=== PATIENT | female | born 1965 | race Caucasian/White ===

== ENCOUNTER 2025-05-18 04:32 | Observation (INO) ==
[2025-05-18 04:47] VITALS: BMI 50.9
[2025-05-18 05:02] LABS: MEAN PLATELET VOLUME 8.0 fL (7.4-11.0); RED CELL DISTRIBUTION WIDTH 16.5 % (11.6-16.5)
[2025-05-18 05:07] LABS: BLOOD/HEMOGLOBIN,URINE NEGATIVE (NEGATIVE); LEUKOCYTE ESTERASE ,URINE NEGATIVE (NEGATIVE); NITRITES,URINE NEGATIVE (NEGATIVE)
[2025-05-18 05:11] LABS: COR CA(FOR HYPOALB) 10.1 mg/dL (8.5-10.1); COR NA(FOR HYPERGLY) 137.0 mmol/L (136-145); CREATININE 1.2 mg/dL (0.55-1.02); eGFR NON BLACK RACES 48.0 (>60)
[2025-05-18 05:17] LABS: APPEARANCE,URINE CLEAR (CLEAR)
--- NOTE | 2025-05-18 05:37 | CT ---
PROCEDURE: CT Abdomen and Pelvis without IV Contrast. HISTORY: Right lower abdominal pain; PT C/O RLQ PAIN THAT STARTED LAST NIGHT. IF SHE APPLIES PRESSURE SHE FEELS BETTER . TECHNIQUE: Axial images were performed through the abdomen and pelvis without the administration of IV contrast with multiplanar reformations . Oral contrast was notadministered . Dose reduction techniques including Automated Exposure Control (AEC) and adjustment of mA and kV were utilized .. COMPARISON: 04/04/2025. TECHNICAL QUALITY: Satisfactory. FINDINGS: Clear lung bases. Liver, spleen, adrenals, pancreas show no abnormality. No urinary tract stones or obstructive uropathy. Previous cholecystectomy. No ascites or pneumoperitoneum. Trace atherosclerosis aorta. No lymphadenopathy. No bowel obstruction or inflammation. Appendix is not visualized. No findings suggesting appendicitis right lower quadrant. Pelvis shows previous hysterectomy and no masses or free fluid. Normal urinary bladder. No acute bony abnormality. IMPRESSION: 1. Appendix is not visualized. No other significant abnormality right lower quadrant. 2. No other significant abnormality visualized. THIS IS AN ELECTRONICALLY VERIFIED FINAL REPORT 05/18/2025 5:33 AM - Electronically signed by Justin Mora MD
--- NOTE | 2025-05-18 06:20 | ED.ABDFE ---
HPI Time Seen Time Seen by Provider: 05/18/25 06:18 PCP Primary Care Physician: Dr. Rosario Complaint Doctors Chief Complaint Comments: Patient complaining of right lower quadrant pain that started right after supper last night it hurts but is relieved when pressure is applied to the area. Chief Complaint:: Patient states around dinner time tonight, patient started having RLQ pain that was relieved when pressure was applied. States she went and laid down and laid on that side to apply pressure. Patient reports that when she rolled over off that side that the pain intensified after pressure was released. Patient is tearful during triage. COVID-19 Coronavirus risk:travel/contact w/high risk person: No Has patient experienced Coronavirus symptoms: No Source History Provided: Patient Mode of arrival Mode of Arrival: Ambulatory Timing Onset of Chief Complaint: 05/17/25 PMH PMH Past Medical History: Yes Past Medical History: Arthritis, Coronary Artery Disease, Diabetes, Dyslipidemia, GERD, Hypertension, Hypothyroidism, Kidney Stones and [place] Past Surgical History: Yes Surgical History: Cholecystectomy, Hysterectomy and Ortho Surgery Past Surgical History Comment: Bilateral shoulder Family History History of Family Medical Conditions: Yes Family Medical History: Diabetes Mellitus, Coronary Artery Disease and Hypertension Social History Does any household member use tobacco: No Alcohol Use: None Do you use any recreational Drugs:: No Lives Where: Home Travel Risk Coronavirus risk:travel/contact w/high risk person: No Has patient experienced Coronavirus symptoms: No Infectious screening Have you traveled outside the country in the last 6 months?: No Isolation: Standard ROS Review of Systems Constitutional: Other (rlq abdominal pain) Eyes: No Symptoms Reported ENTM: No Symptoms Reported Respiratoy: No Symptoms Reported Cardiovascular: No Symptoms Reported Gastrointestinal/Abdominal: Abdominal Pain Genitourinary: No Symptoms Reported Neurological: No Symptoms Reported Musculoskeletal: No Symptoms Reported Integumentary: No Symptoms Reported Hematologic/Lymphatic: No Symptoms Reported Endocrine: No Symptoms Reported Psychiatric: No Symptoms Reported All Other Systems: Reviewed and Negative PE Vital Signs Vitals: Vital Signs Temperature 97.7 F Pulse Rate 88 Pulse Rate 88 Pulse Rate 88 Pulse Rate 91 Pulse Rate 90 Respiratory Rate 18 Blood Pressure 123/57 Blood Pressure 122/60 Blood Pressure 115/72 O2 Sat by Pulse Oximetry 98 O2 Sat by Pulse Oximetry 98 O2 Sat by Pulse Oximetry 99 O2 Sat by Pulse Oximetry 100 O2 Sat by Pulse Oximetry 99 General Limitations: Physical Limitation (due to morbid obesity and rlq abdominal perry) General Appearance: In Distress (moderate distress) Head Head Exam: Normal Inspection, Atraumatic and Normocephalic Eyes Eye exam: PERRL ENT ENT Exam: Normal Exam and Normal Oropharynx Neck Neck Exam: Normal Inspection and Full ROM Chest Chest Inspection: Normal Inspection and Symmetric Chest Wall Rise Respiratory Respiratory Exam: Normal Lung Sounds Bilat Cardiovascular Cardiovascular Exam: Regular Rate and Normal Rhythm Abdominal Exam Abdominal Exam: Normal Inspection, Normal Bowel Sounds, Soft and Tenderness (rlq) Abdominal Tenderness: RLQ Rectal Rectal Exam: Deferred Back Back Exam: Normal Inspection Extremeties Extremities Exam: Normal Inspection Neurologic Neurological Exam: Alert, Oriented X3 and CN II-XII Intact Psychiatric Psychiatric Exam: Agitated Skin Skin Exam: Warm, Dry and Intact MDM Differential Diagnosis Differential Diagnosis- Considerations may include:: Appendicitis, Bowel Obstruction, Constipation, Urinary obstruction, Urinary tract infection and Urolithiasis COURSE Treatment Treatment: This patient made relatively stable during the ER visit. We did do a CT scan of the abdomen and pelvis and it did not show an appendix butdid not see any signs of acute appendicitis. Was no more intra-abdominal abnormalities. This patient CBC showed a WBC of only 10.6 the repeat metabolic panel showed a glucose of 128 BUN is 18 creatinine 1.20. Urine analysis that only showed plus for glucose but no leukocyte esterase. This patient was ordered Toradol 30 mg IV for pain but we are unable to get in the Pyxis to administer medications so we are awaiting time and that we have access to the medications in the Pyxis to give the patient some medication for the pain. [facility] Labs Reviewed 05/18/25 04:45 05/18/25 04:45 Laboratory: WBC 10.6 X10^3/uL (3.6-10.0) H 05/18/25 04:45 RBC 4.58 X10^6/uL (3.5-5.4) 05/18/25 04:45 Hgb 13.1 g/dL (12.0-16.0) 05/18/25 04:45 Hct 39.3 % (36.0-47.0) 05/18/25 04:45 MCV 85.8 fL (80.0-100.0) 05/18/25 04:45 MCH 28.7 pg (27.0-34.0) 05/18/25 04:45 MCHC 33.4 g/dL (33.0-35.0) 05/18/25 04:45 RDW 16.5 % (11.6-16.5) 05/18/25 04:45 Plt Count 330 X10^3/uL (150.0-450.0) 05/18/25 04:45 MPV 8.0 fL (7.4-11.0) 05/18/25 04:45 Neut % (Auto) 72.0 % (42.0-75.0) 05/18/25 04:45 Lymph % (Auto) 18.5 % (21.0-51.0) L 05/18/25 04:45 [place] % (Auto) 3.9 % (0.0-13.0) 05/18/25 04:45 Eos % (Auto) 3.1 % (0.9-2.9) H 05/18/25 04:45 Baso % (Auto) 2.5 % (0.2-1.0) H 05/18/25 04:45 Neut # (Auto) 7.6 x10^3/uL (2.2-4.8) H 05/18/25 04:45 Lymph # (Auto) 2.0 X10^3/uL (1.3-2.9) 05/18/25 04:45 [place] # (Auto) 0.4 x10^3/uL (0.3-0.8) 05/18/25 04:45 Eos # (Auto) 0.3 x10^3/uL (0.0-0.2) H 05/18/25 04:45 Baso # (Auto) 0.3 X10^3/uL (0.0-0.1) H 05/18/25 04:45 Absolute Nucleated RBC 0.1 /100WBC 05/18/25 04:45 Sodium 136 mmol/L (136-145) 05/18/25 04:45 Corrected Sodium 137 mmol/L (136-145) 05/18/25 04:45 Potassium 3.9 mmol/L (3.5-5.1) 05/18/25 04:45 Chloride 103 mmol/L (98-107) 05/18/25 04:45 Carbon Dioxide 23.1 mmol/L (21-32) 05/18/25 04:45 BUN 18 mg/dL (7-18) 05/18/25 04:45 Creatinine 1.20 mg/dL (0.55-1.02) H 05/18/25 04:45 Est GFR (MDRD) Af Amer 59 (>60) 05/18/25 04:45 Est GFR (MDRD) Non-Af 48 (>60) L 05/18/25 04:45 Glucose 128 mg/dL (65-99) H 05/18/25 04:45 Calcium 9.1 mg/dL (8.5-10.1) 05/18/25 04:45 Corrected Calcium 10.1 mg/dL (8.5-10.1) 05/18/25 04:45 Total Bilirubin 0.50 mg/dL (0.2-1.0) 05/18/25 04:45 AST 14 Units/L (15-37) L 05/18/25 04:45 ALT 22 Units/L (12-78) 05/18/25 04:45 Alkaline Phosphatase 207 Units/L (46-116) H 05/18/25 04:45 Total Protein 7.6 g/dL (6.4-8.2) 05/18/25 04:45 Albumin 2.8 g/dL (3.4-5.0) L 05/18/25 04:45 Globulin 4.8 g/dL (2.5-4.5) H 05/18/25 04:45 Albumin/Globulin Ratio 0.6 Ratio (1.1-2.1) L 05/18/25 04:45 Specimen Type Clean catch urine 05/18/25 04:55 Urine Color Pale yellow (YELLOW) 05/18/25 04:55 Urine Appearance Clear (CLEAR) 05/18/25 04:55 Urine pH 6.0 (5.0 - 8.0) 05/18/25 04:55 Ur Specific [place] 1.020 (1.000-1.030) 05/18/25 04:55 Urine Protein Negative (NEGATIVE) 05/18/25 04:55 Urine Glucose (UA) 4+ (NEGATIVE) 05/18/25 04:55 Urine Ketones Negative (NEGATIVE) 05/18/25 04:55 Urine Blood Negative (NEGATIVE) 05/18/25 04:55 Urine Nitrite Negative (NEGATIVE) 05/18/25 04:55 Urine Bilirubin Negative (NEGATIVE) 05/18/25 04:55 Urine Urobilinogen Normal (NORMAL) 05/18/25 04:55 Ur Leukocyte Esterase Negative (NEGATIVE) 05/18/25 04:55 Opioid Opioid Risk Tool Age (Keith box if 16-45): No History of Preadolescent Sexual Abuse: No Total: 0 Total Score Risk Category: Low Risk Copyright: [facility] predicting aberrant behaviors Discharge Plan Discharge Plan Patient Disposition: HOME, SELF-CARE Condition: Stable Prescriptions: No Action tirzepatide 10 mg/0.5 mL pen injector 10 mg subcut QWEEK 90 Days Qty: 6.5 1RF Rx Instructions: Take 10 mg once a week Voquezna 20 mg tablet 20 mg PO QDAY 30 Days Qty: 30 1RF gabapentin 300 mg capsule 300 mg PO TID Qty: 90 2RF omeprazole 40 mg capsule,delayed release(DR/EC) 40 mg PO BID Qty: 60 2RF levothyroxine 50 mcg tablet 50 mcg PO QDAY Qty: 90 0RF Humulin 70/30 U-100 KwikPen 100 unit/mL (70-30) insulin pen See Rx Instructions .ROUTE .COMPLEX Qty: 15 3RF Dose Instruction: INJECT 60 UNITS SUBCUTANEOUSLY IN THE MORNING AND 38 UNITS AT BEDTIME Rx Instructions: INJECT 60 UNITS SUBCUTANEOUSLY IN THE MORNING AND 38 UNITS AT BEDTIME ezetimibe 10 mg tablet 10 mg PO QDAY Qty: 90 0RF aspirin 81 mg tablet,delayed release (DR/EC) 81 mg PO QDAY lisinopril 10 mg tablet 10 mg PO QDAY metoprolol tartrate 25 mg tablet 25 mg PO BID Patient Comments: CARDIO Brilinta 90 mg tablet 90 mg PO BID Patient Comments: CARDIO atorvastatin 80 mg tablet 80 mg PO QDAY Patient Comments: CARDIO eplerenone 25 mg tablet 25 mg PO QDAY Patient Comments: CARDIO dapagliflozin propanediol [Farxiga] 10 mg tablet 10 mg PO QAM Patient Comments: CARDIO albuterol sulfate 90 mcg/actuation HFA aerosol inhaler 2 puff inhalation Q6H PRN (Reason: shortness of breath or wheezing) Qty: 6.7 1RF ezetimibe 10 mg tablet 10 mg PO QDAY amoxicillin-pot clavulanate 500-125 mg tablet 1 tab PO BID 7 Days Qty: 14 0RF furosemide [Lasix] 20 mg tablet 20 mg PO QAM PRN (Reason: leg swelling) Qty: 30 0RF phenazopyridine [Pyridium] 100 mg tablet 100 mg PO TID PRNQty: 6 0RF Health Concerns: Post Hospitalization: new medications and changes needed to prevent readmission or further decline. Pt educated and given instructions on all concerns. Plan of Treatment: Continue with present treatment and follow up plan. Pt is to keep follow up appointment as instructed and take medications as ordered. Follow ups/Referrals Follow ups/Referrals: Patience Rosario MD [Primary Care Provider, Unknown] - 3 days Instructions Stand Alone Forms: Find Help Web Site, Post Hospital Follow Up Care Print Language: SWEDISH
[2025-05-18] MEDS: TORADOL 30 MG VIAL IVP ONE (07:12)
[2025-05-18] MEDS: MORPHINE SULFATE INJ 2 MG INJ IVP ONE (07:49)
[2025-05-18] MEDS: ZOFRAN INJ 4 MG VIAL IVP ONE (07:49)
[2025-05-18] MEDS: NS 1,000 ML IV 1,000 ML IV ONE (08:27)
[2025-05-18] MEDS: ROCEPHIN VIAL 1 GRAM IV ONE (08:44)
--- NOTE | 2025-05-18 08:45 | ED.ABDFE ---
HPI Time Seen Time Seen by Provider: 05/18/25 06:18 PCP Primary Care Physician: Dr. Rosario Complaint Chief Complaint:: Patient states around dinner time tonight, patient started having RLQ pain that was relieved when pressure was applied. States she went and laid down and laid on that side to apply pressure. Patient reports that when she rolled over off that side that the pain intensified after pressure was released. Patient is tearful during triage. COVID-19 Coronavirus risk:travel/contact w/high risk person: No Has patient experienced Coronavirus symptoms: No Source History Provided: Patient Mode of arrival Mode of Arrival: Ambulatory Timing Onset of Chief Complaint: 05/17/25 PMH PMH Past Medical History: Yes Past Medical History: Arthritis, Coronary Artery Disease, Diabetes, Dyslipidemia, GERD, Hypertension, Hypothyroidism, Kidney Stones and [place] Past Surgical History: Yes Surgical History: Cholecystectomy, Hysterectomy and Ortho Surgery Past Surgical History Comment: Bilateral shoulder Family History History of Family Medical Conditions: Yes Family Medical History: Diabetes Mellitus, Coronary Artery Disease and Hypertension Social History Does any household member use tobacco: No Alcohol Use: None Do you use any recreational Drugs:: No Lives Where: Home Travel Risk Coronavirus risk:travel/contact w/high risk person: No Has patient experienced Coronavirus symptoms: No Infectious screening Have you traveled outside the country in the last 6 months?: No Isolation: Standard PE Vital Signs Vitals: Vital Signs Temperature 97.7 F Pulse Rate 87 Pulse Rate 86 Pulse Rate 88 Pulse Rate 88 Pulse Rate 88 Pulse Rate 87 Pulse Rate 88 Pulse Rate 88 Pulse Rate 88 Pulse Rate 91 Pulse Rate 90 Respiratory Rate 20 Respiratory Rate 20 Respiratory Rate 20 Respiratory Rate 20 Respiratory Rate 18 Blood Pressure 124/69 Blood Pressure 129/62 Blood Pressure 126/61 Blood Pressure 123/57 Blood Pressure 122/60 Blood Pressure 115/72 O2 Sat by Pulse Oximetry 98 O2 Sat by Pulse Oximetry 99 O2 Sat by Pulse Oximetry 97 O2 Sat by Pulse Oximetry 97 O2 Sat by Pulse Oximetry 97 O2 Sat by Pulse Oximetry 97 O2 Sat by Pulse Oximetry 98 O2 Sat by Pulse Oximetry 98 O2 Sat by Pulse Oximetry 99 O2 Sat by Pulse Oximetry 100 O2 Sat by Pulse Oximetry 99 [facility] Labs Reviewed 05/18/25 04:45 05/18/25 04:45 Laboratory: WBC 10.6 X10^3/uL (3.6-10.0) H 05/18/25 04:45 RBC 4.58 X10^6/uL (3.5-5.4) 05/18/25 04:45 Hgb 13.1 g/dL (12.0-16.0) 05/18/25 04:45 Hct 39.3 % (36.0-47.0) 05/18/25 04:45 MCV 85.8 fL (80.0-100.0) 05/18/25 04:45 MCH 28.7 pg (27.0-34.0) 05/18/25 04:45 MCHC 33.4 g/dL (33.0-35.0) 05/18/25 04:45 RDW 16.5 % (11.6-16.5) 05/18/25 04:45 Plt Count 330 X10^3/uL (150.0-450.0) 05/18/25 04:45 MPV 8.0 fL (7.4-11.0) 05/18/25 04:45 Neut % (Auto) 72.0 % (42.0-75.0) 05/18/25 04:45 Lymph % (Auto) 18.5 % (21.0-51.0) L 05/18/25 04:45 [place] % (Auto) 3.9 % (0.0-13.0) 05/18/25 04:45 Eos % (Auto) 3.1 % (0.9-2.9) H 05/18/25 04:45 Baso % (Auto) 2.5 % (0.2-1.0) H 05/18/25 04:45 Neut # (Auto) 7.6 x10^3/uL (2.2-4.8) H 05/18/25 04:45 Lymph # (Auto) 2.0 X10^3/uL (1.3-2.9) 05/18/25 04:45 [place] # (Auto) 0.4 x10^3/uL (0.3-0.8) 05/18/25 04:45 Eos # (Auto) 0.3 x10^3/uL (0.0-0.2) H 05/18/25 04:45 Baso # (Auto) 0.3 X10^3/uL (0.0-0.1) H 05/18/25 04:45 Absolute Nucleated RBC 0.1 /100WBC 05/18/25 04:45 Sodium 136 mmol/L (136-145) 05/18/25 04:45 Corrected Sodium 137 mmol/L (136-145) 05/18/25 04:45 Potassium 3.9 mmol/L (3.5-5.1) 05/18/25 04:45 Chloride 103 mmol/L (98-107) 05/18/25 04:45 Carbon Dioxide 23.1 mmol/L (21-32) 05/18/25 04:45 BUN 18 mg/dL (7-18) 05/18/25 04:45 Creatinine 1.20 mg/dL (0.55-1.02) H 05/18/25 04:45 Est GFR (MDRD) Af Amer 59 (>60) 05/18/25 04:45 Est GFR (MDRD) Non-Af 48 (>60) L 05/18/25 04:45 Glucose 128 mg/dL (65-99) H 05/18/25 04:45 Calcium 9.1 mg/dL (8.5-10.1) 05/18/25 04:45 Corrected Calcium 10.1 mg/dL (8.5-10.1) 05/18/25 04:45 Total Bilirubin 0.50 mg/dL (0.2-1.0) 05/18/25 04:45 AST 14 Units/L (15-37) L 05/18/25 04:45 ALT 22 Units/L (12-78) 05/18/25 04:45 Alkaline Phosphatase 207 Units/L (46-116) H 05/18/25 04:45 Total Protein 7.6 g/dL (6.4-8.2) 05/18/25 04:45 Albumin 2.8 g/dL (3.4-5.0) L 05/18/25 04:45 Globulin 4.8 g/dL (2.5-4.5) H 05/18/25 04:45 Albumin/Globulin Ratio 0.6 Ratio (1.1-2.1) L 05/18/25 04:45 Amylase 34 Units/L (25-115) 05/18/25 04:45 Lipase 47 Units/L (16-77) 05/18/25 04:45 Specimen Type Clean catch urine 05/18/25 04:55 Urine Color Pale yellow (YELLOW) 05/18/25 04:55 Urine Appearance Clear (CLEAR) 05/18/25 04:55 Urine pH 6.0 (5.0 - 8.0) 05/18/25 04:55 Ur Specific [place] 1.020 (1.000-1.030) 05/18/25 04:55 Urine Protein Negative (NEGATIVE) 05/18/25 04:55 Urine Glucose (UA) 4+ (NEGATIVE) 05/18/25 04:55 Urine Ketones Negative (NEGATIVE) 05/18/25 04:55 Urine Blood Negative (NEGATIVE) 05/18/25 04:55 Urine Nitrite Negative (NEGATIVE) 05/18/25 04:55 Urine Bilirubin Negative (NEGATIVE) 05/18/25 04:55 Urine Urobilinogen Normal (NORMAL) 05/18/25 04:55 Ur Leukocyte Esterase Negative (NEGATIVE) 05/18/25 04:55 Opioid Opioid Risk Tool Age (Keith box if 16-45): No History of Preadolescent Sexual Abuse: No Total: 0 Total Score Risk Category: Low Risk Copyright: [facility] predicting aberrant behaviors Discharge Plan Diagnosis Discharge Problem: Acute abdomen, DM type 2 (diabetes mellitus, type 2) Hypothyroidism Qualifiers: Hypothyroidism type: acquired Qualified Code(s): E03.9 - Hypothyroidism, unspecified Hypertension Qualifiers: Hypertension type: primary hypertension Qualified Code(s): I10 - Essential (primary) hypertension Discharge Plan Patient Disposition: 09 ADMITTED INPATIENT Condition: Stable Prescriptions: Discontinued Voquezna 20 mg tablet 20 mg PO QDAY 30 Days Qty: 30 1RF omeprazole 40 mg capsule,delayed release(DR/EC) 40 mg PO BID Qty: 60 2RF albuterol sulfate 90 mcg/actuation HFA aerosol inhaler 2 puff inhalation Q6H PRN (Reason: shortness of breath or wheezing) Qty: 6.7 1RF ezetimibe 10 mg tablet 10 mg PO QDAY amoxicillin-pot clavulanate 500-125 mg tablet 1 tab PO BID 7 Days Qty: 14 0RF furosemide [Lasix] 20 mg tablet 20 mg PO QAM PRN (Reason: leg swelling) Qty: 30 0RF phenazopyridine [Pyridium] 100 mg tablet 100 mg PO TID PRNQty: 6 0RF No Action tirzepatide 10 mg/0.5 mL pen injector 10 mg subcut QWEEK 90 Days Qty: 6.5 1RF Rx Instructions: Take 10 mg once a week gabapentin 300 mg capsule 300 mg PO TID Qty: 90 2RF levothyroxine 50 mcg tablet 50 mcg PO QDAY Qty: 90 0RF Humulin 70/30 U-100 KwikPen 100 unit/mL (70-30) insulin pen See Rx Instructions .ROUTE .COMPLEX Qty: 15 3RF Dose Instruction: INJECT 60 UNITS SUBCUTANEOUSLY IN THE MORNING AND 38 UNITS AT BEDTIME Rx Instructions: INJECT 60 UNITS SUBCUTANEOUSLY IN THE MORNING AND 38 UNITS AT BEDTIME ezetimibe 10 mg tablet 10 mg PO QDAY Qty: 90 0RF aspirin 81 mg tablet,delayed release (DR/EC) 81 mg PO QDAY lisinopril 10 mg tablet 10 mg PO QDAY metoprolol tartrate 25 mg tablet 25 mg PO BID Patient Comments: CARDIO Brilinta 90 mg tablet 90 mg PO BID Patient Comments: CARDIO atorvastatin 80 mg tablet 80 mg PO QDAY Patient Comments: CARDIO eplerenone 25 mg tablet 25 mg PO QDAY Patient Comments: CARDIO dapagliflozin propanediol [Farxiga] 10 mg tablet 10 mg PO QAM Patient Comments: CARDIO Health Concerns: Post Hospitalization: new medications and changes needed to prevent readmission or further decline. Pt educated and given instructions on all concerns. Plan of Treatment: Continue with present treatment and follow up plan. Pt is to keep follow up appointment as instructed and take medications as ordered. Orders to Discharge Patient Discharge Orders: Transfer (Routine); Ordered 05/18/25 Ordered By: Gama Parikh Follow ups/Referrals Follow ups/Referrals: Patience Rosario MD [Primary Care Provider, Unknown] - 3 days Instructions Stand Alone Forms: Find Help Web Site, Post Hospital Follow Up Care Print Language: [place] Provider Note Additional Notes pt was seen following from Dr. Dahl. She was noted to experience pain in the right lower abdomen. CBC showed wbc to be 10.6,ct abdomen /pelvis without contrast appendix not visualized but no acute inflammatory process noted .She did have worsening of pain with movement and over the mid-abdomen .her lipase and amylase was neg as patient also on mounjaro. She was discussed with Dr Rosario. Agreed to admit patient for observation .and monitor her abdominal pin ,start rocephin IV,fluids keep NPO and repeat ct abdomen/pelvis with contrast may be tomorrow
[2025-05-18] MEDS ORDERED: NovoLIN R (or HumuLIN R) SUBCUT PRN (10:21)
--- NOTE | 2025-05-18 11:26 | DR.H&P ---
H&P History & Physical for Day of: H&P Date: 05/18/25 Chief Complaint Chief Complaint: RLQ abdominal pain History of Present Illness History of Present Illness: Patient is a 60-year-old female with a past medical history of type 2 diabetes, CAD, hypertension, hyperlipidemia, hypothyroidism and arthritis presented with worsening right sided abdominal pain. She states the pain started yesterday and got worse last night. She denies any associated nausea, vomiting or diarrhea. The pain does not radiate anywhere it is localized to the right lower part of the abdomen. She states she had similar pain in March and presented to the ER, was treated for UTI. She states this time the pain is worse. ER workup included labs which showed WBC 10.6 hemoglobin 13.[address] abdomen pelvis without contrast was done which did not show any acute changes. Lipase and amylase were normal. UA was normal. She was started on IV fluids and antibiotics. Patient continues to have severe right sided abdominal pain, tender to palpation. Labs/imaging reviewed: - WBC 10.6 hemoglobin 13.1 creatinine 1.20 potassium 3.9 glucose 128 - CT abdomen pelvis without contrast reviewed Plan: Admit to [facility], continue to monitor. Repeat CTAP with contrast. Check lactic acid. Continue IV antibiotics. Continue gentle hydration. Replace electrolytes as per protocol. N.p.o. except meds for now. Continue pain control. Resume home medications as appropriate. Monitor a.m. labs and imaging. Time spent for clinical assessment, reviewing labs and imaging, physical exam, decision making and documentation greater than 45 minutes. Past Medical History Past Medical History: Arthritis, Coronary Artery Disease, Diabetes, Dyslipidemia, GERD, Hypertension, Hypothyroidism, Kidney Stones and [place] Past Surgical History Surgical History: Cholecystectomy, Hysterectomy and Ortho Surgery Family History Family Medical History: Diabetes Mellitus, Coronary Artery Disease and Hypertension Social History Does any household member use tobacco: No Alcohol Use: None Medications Home Medications: Home Medications Medication Instructions Recorded Confirmed Type aspirin 81 mg tablet,delayed 81 mg PO QDAY 05/30/23 History release atorvastatin 80 mg tablet 80 mg PO QDAY 05/18/2505/18 History dapagliflozin propanediol 10 mg 10 mg PO QDAY 05/18/25 05/18/25 History tablet (Farxiga) eplerenone 25 mg tablet 25 mg PO QDAY 05/18/2505/18 History ezetimibe 10 mg tablet 10 mg PO QDAY 05/18/2505/18 History furosemide 20 mg tablet 20 mg PO QAM PRN swelling 05/18/25 History gabapentin 300 mg capsule 300 mg PO TID 05/18/2505/18 History levothyroxine 50 mcg tablet 50 mcg PO QDAY 05/18/25 History lisinopril 10 mg tablet 10 mg PO QDAY 05/18/2505/18 History metoprolol tartrate 25 mg tablet 25 mg PO BID 05/18/25 05/18/25 History omeprazole 40 mg capsule,delayed 40 mg PO BID 05/18/25 05/18/25 History release ticagrelor 90 mg tablet (Brilinta) 90 mg PO BID 05/18/25 History tirzepatide 10 mg/0.5 mL 10 mg subcut QWEEK 05/18/25 05/18/25 History subcutaneous pen injector (Nicho) Allergies Allergies Allergy/AdvReac Type Severity Reaction Status Date / Time No Known Allergies Allergy Verified 05/18/25 04:48 Labs 05/18/25 04:45 05/18/25 04:45 Labs: Laboratory WBC 10.6 X10^3/uL (3.6-10.0) H 05/18/25 04:45 RBC 4.58 X10^6/uL (3.5-5.4) 05/18/25 04:45 Hgb 13.1 g/dL (12.0-16.0) 05/18/25 04:45 Hct 39.3 % (36.0-47.0) 05/18/25 04:45 MCV 85.8 fL (80.0-100.0) 05/18/25 04:45 MCH 28.7 pg (27.0-34.0) 05/18/25 04:45 MCHC 33.4 g/dL (33.0-35.0) 05/18/25 04:45 RDW 16.5 % (11.6-16.5) 05/18/25 04:45 Plt Count 330 X10^3/uL (150.0-450.0) 05/18/25 04:45 MPV 8.0 fL (7.4-11.0) 05/18/25 04:45 Neut % (Auto) 72.0 % (42.0-75.0) 05/18/25 04:45 Lymph % (Auto) 18.5 % (21.0-51.0) L 05/18/25 04:45 [place] % (Auto) 3.9 % (0.0-13.0) 05/18/25 04:45 Eos % (Auto) 3.1 % (0.9-2.9) H 05/18/25 04:45 Baso % (Auto) 2.5 % (0.2-1.0) H 05/18/25 04:45 Neut # (Auto) 7.6 x10^3/uL (2.2-4.8) H 05/18/25 04:45 Lymph # (Auto) 2.0 X10^3/uL (1.3-2.9) 05/18/25 04:45 [place] # (Auto) 0.4 x10^3/uL (0.3-0.8) 05/18/25 04:45 Eos # (Auto) 0.3 x10^3/uL (0.0-0.2) H 05/18/25 04:45 Baso # (Auto) 0.3 X10^3/uL (0.0-0.1) H 05/18/25 04:45 Absolute Nucleated RBC 0.1 /100WBC 05/18/25 04:45 Sodium 136 mmol/L (136-145) 05/18/25 04:45 Corrected Sodium 137 mmol/L (136-145) 05/18/25 04:45 Potassium 3.9 mmol/L (3.5-5.1) 05/18/25 04:45 Chloride 103 mmol/L (98-107) 05/18/25 04:45 Carbon Dioxide 23.1 mmol/L (21-32) 05/18/25 04:45 BUN 18 mg/dL (7-18) 05/18/25 04:45 Creatinine 1.20 mg/dL (0.55-1.02) H 05/18/25 04:45 Est GFR (MDRD) Af Amer 59 (>60) 05/18/25 04:45 Est GFR (MDRD) Non-Af 48 (>60) L 05/18/25 04:45 Glucose 128 mg/dL (65-99) H 05/18/25 04:45 Calcium 9.1 mg/dL (8.5-10.1) 05/18/25 04:45 Corrected Calcium 10.1 mg/dL (8.5-10.1) 05/18/25 04:45 Total Bilirubin 0.50 mg/dL (0.2-1.0) 05/18/25 04:45 AST 14 Units/L (15-37) L 05/18/25 04:45 ALT 22 Units/L (12-78) 05/18/25 04:45 Alkaline Phosphatase 207 Units/L (46-116) H 05/18/25 04:45 Total Protein 7.6 g/dL (6.4-8.2) 05/18/25 04:45 Albumin 2.8 g/dL (3.4-5.0) L 05/18/25 04:45 Globulin 4.8 g/dL (2.5-4.5) H 05/18/25 04:45 Albumin/Globulin Ratio 0.6 Ratio (1.1-2.1) L 05/18/25 04:45 Amylase 34 Units/L (25-115) 05/18/25 04:45 Lipase 47 Units/L (16-77) 05/18/25 04:45 Specimen Type Clean catch urine 05/18/25 04:55 Urine Color Pale yellow (YELLOW) 05/18/25 04:55 Urine Appearance Clear (CLEAR) 05/18/25 04:55 Urine pH 6.0 (5.0 - 8.0) 05/18/25 04:55 Ur Specific [place] 1.020 (1.000-1.030) 05/18/25 04:55 Urine Protein Negative (NEGATIVE) 05/18/25 04:55 Urine Glucose (UA) 4+ (NEGATIVE) 05/18/25 04:55 Urine Ketones Negative (NEGATIVE) 05/18/25 04:55 Urine Blood Negative (NEGATIVE) 05/18/25 04:55 Urine Nitrite Negative (NEGATIVE) 05/18/25 04:55 Urine Bilirubin Negative (NEGATIVE) 05/18/25 04:55 Urine Urobilinogen Normal (NORMAL) 05/18/25 04:55 Ur Leukocyte Esterase Negative (NEGATIVE) 05/18/25 04:55 Review of Systems Constitutional: No Symptoms Reported Eyes: No Symptoms Reported ENT: No Symptoms Reported Respiratory: No Symptoms Reported Cardiovascular: No Symptoms Reported Gastrointestinal: Abdominal Pain Genitourinary: No Symptoms Reported Musculoskeletal: No Symptoms Reported Skin: No Symptoms Reported Neurological: No Symptoms Reported Physical Exam Vital Signs: Vital Signs Temperature 97.7 F Pulse Rate 90 Pulse Rate 91 Pulse Rate 91 Pulse Rate 88 Pulse Rate 87 Pulse Rate 86 Pulse Rate 87 Pulse Rate 87 Pulse Rate 88 Pulse Rate 87 Pulse Rate 86 Pulse Rate 88 Pulse Rate 88 Pulse Rate 88 Pulse Rate 87 Pulse Rate 88 Pulse Rate 88 Pulse Rate 88 Pulse Rate 91 Pulse Rate 90 Respiratory Rate 20 Respiratory Rate 20 Respiratory Rate 20 Respiratory Rate 20 Respiratory Rate 18 Blood Pressure 125/56 Blood Pressure 136/66 Blood Pressure 136/77 Blood Pressure 139/80 Blood Pressure 124/69 Blood Pressure 129/62 Blood Pressure 126/61 Blood Pressure 123/57 Blood Pressure 122/60 Blood Pressure 115/72 O2 Sat by Pulse Oximetry 98 O2 Sat by Pulse Oximetry 99 O2 Sat by Pulse Oximetry 98 O2 Sat by Pulse Oximetry 95 O2 Sat by Pulse Oximetry 100 O2 Sat by Pulse Oximetry 98 O2 Sat by Pulse Oximetry 100 O2 Sat by Pulse Oximetry 98 O2 Sat by Pulse Oximetry 98 O2 Sat by Pulse Oximetry 98 O2 Sat by Pulse Oximetry 99 O2 Sat by Pulse Oximetry 97 O2 Sat by Pulse Oximetry 97 O2 Sat by Pulse Oximetry 97 O2 Sat by Pulse Oximetry 97 O2 Sat by Pulse Oximetry 98 O2 Sat by Pulse Oximetry 98 O2 Sat by Pulse Oximetry 99 O2 Sat by Pulse Oximetry 100 O2 Sat by Pulse Oximetry 99 Oriented: Normal Respiratory: Diminished Throughout Cardiovascular: Normal Auscultation: Bowel Sounds: Normal Tenderness: RLQ and Moderate Skin: Normal Musculoskeletal: Normal Psychiatric: Normal Mood Description: Calm Affect: Normal Speech Pattern: Clear and Appropriate Assessment/Plan (1) Abdominal pain: Qualifiers: Abdominal location: right lower quadrant Qualified Code(s): R10.31 - Right lower quadrant pain Status: Acute (2) DM type 2 (diabetes mellitus, type 2): Qualifiers: Diabetes mellitus [place] insulin use: with residential use Diabetes mellitus complication status: with hyperglycemia Qualified Code(s): E11.65 - Type 2 diabetes mellitus with hyperglycemia; Z79.4 - [facility] (current) use of insulin Status: Chronic (3) CAD (coronary artery disease): Qualifiers: Coronary Disease-Associated Artery/Lesion type: [place] artery [place] vs. transplanted heart: [place] heart Associated angina: without angina Q ualified Code(s): I25.10 - Atherosclerotic heart disease of [place] coronary artery without angina pectoris Status: Chronic (4) Gastroesophageal reflux disease without esophagitis: Status: Chronic (5) DDD (degenerative disc disease): Qualifiers: Spinal region: lumbar Qualified Code(s): M51.36 - Other intervertebral disc degeneration, lumbar region Status: Chronic (6) Hypertension: Qualifiers: Hypertension type: primary hypertension Qualified Code(s): I10 - Essential (primary) hypertension Status: Chronic Review H&P Reviewed: Yes Patient was examined?: Yes
[2025-05-18] MEDS: OMNIPAQUE 350 mg/mL 100 mL BTL IVP NR (13:04)
[2025-05-18] MEDS: NS 1,000 ML IV 1,000 ML IV SCH (13:29)
[2025-05-18] MEDS: ZESTRIL TAB 10 MG PO SCH (13:30)
[2025-05-18] MEDS: LIPITOR TAB 80 MG PO SCH (13:30)
[2025-05-18] MEDS: BRILINTA PO SCH (13:30)
[2025-05-18] MEDS: ROCEPHIN VIAL 1 GRAM 1 G in NS 100 ML IV 100 ML IV SCH (13:30)
[2025-05-18] MEDS: NEURONTIN CAP 300 MG PO SCH (13:30)
[2025-05-18] MEDS: LOPRESSOR TAB 25 MG PO SCH (13:30)
[2025-05-18] MEDS: EPLERENONE 25 MG PO SCH (13:49)
--- NOTE | 2025-05-18 14:51 | CT ---
EXAMINATION: ABDCMEN/PELVIS WITH CON HISTORY: pt arrived in ED this morning for abdominal pain, now pt is complaining of worsening RLQ pain.; COMPARISON: Noncontrast CT abdomen 05/18/2025 TECHNIQUE: Contiguous axial CT images of the abdomen and pelvis following oral and IV contrast. Images reviewed in the axial imaging plane with reformatted sagittal and coronal images.The above CT scan was done with automated exposure control and the mA and kV was adjusted to obtain quality images according to patient size. FINDINGS: The liver measures 19 by 17 by 20 cm. Cholecystectomy. No bile duct dilatation. Pancreas, spleen, adrenal glands appear intact. Abdominal aorta tapers normally. Kidneys normal size and position. 3 cm cyst central density 3 Hounsfield units upper pole right kidney. No hydronephrosis or stranding of the perinephric fat. Small and large bowels are normal caliber. The colon was not opacify with the oral contrast limiting evaluation. Colonic diverticulosis. Mild amount of bowel-gas and feces. No evidence of acute appendicitis. Small bowel loops are normal caliber. Moderate distention of the stomach with food and oral contrast. No ascites. Mild distention of the urinary bladder. Uterus is absent. Pulmonary bases are clear. Mild spondylosis. 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 IMPRESSION: Hepatomegaly. Cholecystectomy. Right renal cyst. Colonic diverticulosis. Hysterectomy. THIS IS AN ELECTRONICALLY VERIFIED FINAL REPORT 05/18/2025 2:48 PM - Electronically signed by Leora Malcolm MD
[2025-05-18] MEDS: MORPHINE SULFATE INJ 2 MG INJ IVP PRN (17:27)
[2025-05-18] MEDS: SNACK - Diabetic Appropriate PO SCH (19:40)
[2025-05-18] MEDS: OMNIPAQUE 350 mg/mL 100 mL BTL 100 ML ONE (20:47)
[2025-05-18] MEDS: HumuLIN 70/30 (NovoLIN 70/30) SC SCH (21:17)
[2025-05-19 07:44] LABS: MEAN PLATELET VOLUME 7.7 fL (7.4-11.0); RED CELL DISTRIBUTION WIDTH 16.1 % (11.6-16.5)
[2025-05-19 07:58] LABS: COR CA(FOR HYPOALB) 9.7 mg/dL (8.5-10.1); CREATININE 0.99 mg/dL (0.55-1.02); eGFR NON BLACK RACES > 60 (>60)
[2025-05-19 08:36] VITALS: BP 114/58; PULSE 85; RESP 16; TEMP 97.9; O2SAT 100
[2025-05-19] MEDS: HumuLIN 70/30 (NovoLIN 70/30) SC SCH (09:58)
[2025-05-19] MEDS ORDERED: NORCO 10/325 TAB PO PRN (10:26)
--- NOTE | 2025-05-19 10:36 | PCM.PROG ---
Progress Note Progress Note for Day of Date of Exam: 05/19/25 Subjective Subjective: Patient seen at bedside, no acute events overnight. She still has right lower quadrant pain, worse with movement. CT abdomen pelvis with contrast was done yesterday which showed some stool burden, will hepatomegaly, renal cyst and diverticulosis. Patient denies nausea or vomiting or diarrhea. She has been tolerating clears. Labs/imaging reviewed: - WBC 10.3 hemoglobin 12.3 platelet 275 potassium 4.9 creatinine 0.9 diet lactic acid x 2 negative - CTAP with contrast reviewed Plan: Change diet to cardiac. Stop morphine. Try lidocaine patch and [place] as needed. Continue home medications. Patient denies being constipated and has been having normal bowel movements. Replace electrolytes as per protocol. Advised patient to sit on the recliner or ambulate as tolerated. Monitor a.m. labs and imaging. Past Medical Family Social History Allergies: Allergies No Known Allergies Allergy (Verified 05/18/25 04:48) Vital Signs and I&O's Vital Signs: Vital Signs Temperature 97.9 F Temperature 97.6 F Pulse Rate [Right Radial] 85 Pulse Rate [Right Radial] 80 Respiratory Rate 16 Respiratory Rate 19 Respiratory Rate 18 Blood Pressure [Left Arm] 114/58 Blood Pressure [Left Arm] 111/55 O2 Sat by Pulse Oximetry 100 O2 Sat by Pulse Oximetry 98 Intake and Output: Intake & Output 05/16/25 05/17/25 05/18/25 05/19/25 23:59 23:59 23:59 23:59 Intake Total 1419 / 1419 1049 / 1049 Balance 1419 / 1419 1049 / 1049 Physical Exam Oriented: Normal Respiratory: Normal Cardiovascular: Normal Auscultation: Bowel Sounds: Normal Tenderness: RLQ and Moderate Skin: Normal Musculoskeletal: Normal Psychiatric: Normal Mood Description: Calm Affect: Normal Speech Pattern: Clear and Appropriate Laboratory and Diagnostics 05/19/25 07:05 05/19/25 07:05 Labs: Laboratory WBC 10.3 X10^3/uL (3.6-10.0) H 05/19/25 07:05 RBC 4.35 X10^6/uL (3.5-5.4) 05/19/25 07:05 Hgb 12.3 g/dL (12.0-16.0) 05/19/25 07:05 Hct 38.1 % (36.0-47.0) 05/19/25 07:05 MCV 87.5 fL (80.0-100.0) 05/19/25 07:05 MCH 28.2 pg (27.0-34.0) 05/19/25 07:05 MCHC 32.2 g/dL (33.0-35.0) L 05/19/25 07:05 RDW 16.1 % (11.6-16.5) 05/19/25 07:05 Plt Count 275 X10^3/uL (150.0-450.0) 05/19/25 07:05 MPV 7.7 fL (7.4-11.0) 05/19/25 07:05 Neut % (Auto) 72.8 % (42.0-75.0) 05/19/25 07:05 Lymph % (Auto) 17.8 % (21.0-51.0) L 05/19/25 07:05 [place] % (Auto) 6.0 % (0.0-13.0) 05/19/25 07:05 Eos % (Auto) 2.6 % (0.9-2.9) 05/19/25 07:05 Baso % (Auto) 0.8 % (0.2-1.0) 05/19/25 07:05 Neut # (Auto) 7.5 x10^3/uL (2.2-4.8) H 05/19/25 07:05 Lymph # (Auto) 1.8 X10^3/uL (1.3-2.9) 05/19/25 07:05 [place] # (Auto) 0.6 x10^3/uL (0.3-0.8) 05/19/25 07:05 Eos # (Auto) 0.3 x10^3/uL (0.0-0.2) H 05/19/25 07:05 Baso # (Auto) 0.1 X10^3/uL (0.0-0.1) 05/19/25 07:05 Absolute Nucleated RBC 0.1 /100WBC 05/19/25 07:05 Sodium 139 mmol/L (136-145) 05/19/25 07:05 Corrected Sodium TNP 05/19/25 07:05 Potassium 4.9 mmol/L (3.5-5.1) 05/19/25 07:05 Chloride 107 mmol/L (98-107) 05/19/25 07:05 Carbon Dioxide 23.2 mmol/L (21-32) 05/19/25 07:05 BUN 19 mg/dL (7-18) H 05/19/25 07:05 Creatinine 0.99 mg/dL (0.55-1.02) 05/19/25 07:05 Est GFR (MDRD) Af Amer > 60 (>60) 05/19/25 07:05 Est GFR (MDRD) Non-Af > 60 (>60) 05/19/25 07:05 Glucose 73 mg/dL (65-99) 05/19/25 07:05 POC Glucose (mg/dL) 72 mg/dL (65-99) 05/19/25 09:43 Lactic Acid 1.2 mmol/L (0.4-2.0) 05/18/25 18:25 Calcium 8.4 mg/dL (8.5-10.1) L 05/19/25 07:05 Corrected Calcium 9.7 mg/dL (8.5-10.1) 05/19/25 07:05 Total Bilirubin 0.40 mg/dL (0.2-1.0) 05/19/25 07:05 AST 22 Units/L (15-37) 05/19/25 07:05 ALT 16 Units/L (12-78) 05/19/25 07:05 Alkaline Phosphatase 182 Units/L (46-116) H 05/19/25 07:05 Total Protein 6.7 g/dL (6.4-8.2) 05/19/25 07:05 Albumin 2.4 g/dL (3.4-5.0) L 05/19/25 07:05 Globulin 4.3 g/dL (2.5-4.5) 05/19/25 07:05 Albumin/Globulin Ratio 0.6 Ratio (1.1-2.1) L 05/19/25 07:05 Amylase 34 Units/L (25-115) 05/18/25 04:45 Lipase 47 Units/L (16-77) 05/18/25 04:45 Specimen Type Clean catch urine 05/18/25 04:55 Urine Color Pale yellow (YELLOW) 05/18/25 04:55 Urine Appearance Clear (CLEAR) 05/18/25 04:55 Urine pH 6.0 (5.0 - 8.0) 05/18/25 04:55 Ur Specific [place] 1.020 (1.000-1.030) 05/18/25 04:55 Urine Protein Negative (NEGATIVE) 05/18/25 04:55 Urine Glucose (UA) 4+ (NEGATIVE) 05/18/25 04:55 Urine Ketones Negative (NEGATIVE) 05/18/25 04:55 Urine Blood Negative (NEGATIVE) 05/18/25 04:55 Urine Nitrite Negative (NEGATIVE) 05/18/25 04:55 Urine Bilirubin Negative (NEGATIVE) 05/18/25 04:55 Urine Urobilinogen Normal (NORMAL) 05/18/25 04:55 Ur Leukocyte Esterase Negative (NEGATIVE) 05/18/25 04:55 Plan (1) Abdominal pain: Status: Acute Qualifiers: Abdominal location: right lower quadrant Qualified Code(s): R10.31 - Right lower quadrant pain (2) DM type 2 (diabetes mellitus, type 2): Status: Chronic Qualifiers: Diabetes mellitus complication status: with hyperglycemia Diabetes mellitus longterm insulin use: with longterm use Qualified Code(s): E11.65 - Type 2 diabetes mellitus with hyperglycemia; Z79.4 - residential (current) use of insulin (3) CAD (coronary artery disease): Status: Chronic Qualifiers: Coronary Disease-Associated Artery/Lesion type: [place] artery [place] vs. transplanted heart: [place] heart Associated angina: without angina Q ualified Code(s): I25.10 - Atherosclerotic heart disease of [place] coronary artery without angina pectoris (4) Gastroesophageal reflux disease without esophagitis: Status: Chronic (5) DDD (degenerative disc disease): Status: Chronic Qualifiers: Spinal region: lumbar Qualified Code(s): M51.36 - Other intervertebral disc degeneration, lumbar region (6) Hypertension: Status: Chronic Qualifiers: Hypertension type: primary hypertension Qualified Code(s): I10 - Essential (primary) hypertension
[2025-05-19] MEDS: LIDODERM 5% PATCH TD SCH (11:19)
[2025-05-19] MEDS ORDERED: COLACE CAP 100 MG PO SCH (21:00)
[2025-05-19] MEDS ORDERED: PHARMACY COMMENT TOP SCH ×3 (21:00→23:00)
--- NOTE | 2025-05-21 09:29 | W.DIS.FURT ---
Summary of Discharge Discharge Summary of Date Date of Exam: 05/19/25 Admission Date Date of Admission: 05/18/25 Admission Diagnosis Patient Problems (Updated 05/18/25 @ 11:26 by Patience Rosario MD) DM type 2 (diabetes mellitus, type 2) (Chronic) E11.9 Hypertension (Chronic) I10 118/80 04/04/25 Hypothyroidism (Acute) E03.9 Thyroid panel 03/30/2023 Hospital Course: Patient is a 60-year-old female with a past medical history of type 2 diabetes, CAD, hypertension, hyperlipidemia, hypothyroidism and arthritis presented with worsening right sided abdominal pain. She states the pain started yesterday and got worse last night. She denies any associated nausea, vomiting or diarrhea. The pain does not radiate anywhere it is localized to the right lower part of the abdomen. She states she had similar pain in March and presented to the ER, was treated for UTI. She states this time the pain is worse. ER workup included labs which showed WBC 10.6 hemoglobin 13.[address] abdomen pelvis without contrast was done which did not show any acute changes. Lipase and amylase were normal. UA was normal. She was started on IV fluids and antibiotics. She continued to have RLQ pain, repeat CTAP with contrast was done. It showed mild stool burden, diverticulosis, renal cyst and normal appendix. Lactic acid was normal. Her labs were monitored and electrolytes replaced as needed. She was given lidocaine patch to put on that spot which helped. Patient's pain likely muscular in nature. She denied GI sx including N/V/D or constipation. She was stable to be discharged home. Vital Signs: Vital Signs (72 hours) 05/18/25 09:30 05/18/25 09:30 05/18/25 09:33 Temperature Pulse Rate 91 H Pulse Rate [Right Radial] Respiratory Rate Blood Pressure 125/56 Blood Pressure [Left Arm] Blood Pressure [Right Arm] O2 Sat by Pulse Oximetry 99 Oxygen Delivery Method Room Air 05/18/25 09:45 05/18/25 13:39 05/18/25 17:02 Temperature 97.7 F 97.6 F Pulse Rate 90 Pulse Rate [Right Radial] 82 80 Respiratory Rate 18 18 Blood Pressure Blood Pressure [Left Arm] Blood Pressure [Right Arm] 140/71 123/66 O2 Sat by Pulse Oximetry 98 100 98 Oxygen Delivery Method Room Air Room Air 05/18/25 17:27 05/18/25 17:57 05/18/25 19:00 Temperature Pulse Rate Pulse Rate [Right Radial] Respiratory Rate 18 18 Blood Pressure Blood Pressure [Left Arm] Blood Pressure [Right Arm] O2 Sat by Pulse Oximetry Oxygen Delivery Method Room Air 05/18/25 20:00 05/19/25 00:00 05/19/25 00:37 Temperature 97.5 F L 97.7 F Pulse Rate Pulse Rate [Right Radial] 79 78 Respiratory Rate 18 18 18 Blood Pressure Blood Pressure [Left Arm] 127/67 111/58 Blood Pressure [Right Arm] O2 Sat by Pulse Oximetry 100 95 Oxygen Delivery Method Room Air Room Air 05/19/25 01:07 05/19/25 04:00 05/19/25 07:14 Temperature 97.6 F Pulse Rate Pulse Rate [Right Radial] 80 Respiratory Rate 17 18 19 Blood Pressure Blood Pressure [Left Arm] 111/55 Blood Pressure [Right Arm] O2 Sat by Pulse Oximetry 98 Oxygen Delivery Method Room Air 05/19/25 08:35 05/19/25 10:11 Temperature 97.9 F Pulse Rate Pulse Rate [Right Radial] 85 Respiratory Rate 16 Blood Pressure Blood Pressure [Left Arm] 114/58 Blood Pressure [Right Arm] O2 Sat by Pulse Oximetry 100 Oxygen Delivery Method Room Air Room Air Labs: Laboratory Last Values WBC 10.3 X10^3/uL (3.6-10.0) H 05/19/25 07:05 RBC 4.35 X10^6/uL (3.5-5.4) 05/19/25 07:05 Hgb 12.3 g/dL (12.0-16.0) 05/19/25 07:05 Hct 38.1 % (36.0-47.0) 05/19/25 07:05 MCV 87.5 fL (80.0-100.0) 05/19/25 07:05 MCH 28.2 pg (27.0-34.0) 05/19/25 07:05 MCHC 32.2 g/dL (33.0-35.0) L 05/19/25 07:05 RDW 16.1 % (11.6-16.5) 05/19/25 07:05 Plt Count 275 X10^3/uL (150.0-450.0) 05/19/25 07:05 MPV 7.7 fL (7.4-11.0) 05/19/25 07:05 Neut % (Auto) 72.8 % (42.0-75.0) 05/19/25 07:05 Lymph % (Auto) 17.8 % (21.0-51.0) L 05/19/25 07:05 [place] % (Auto) 6.0 % (0.0-13.0) 05/19/25 07:05 Eos % (Auto) 2.6 % (0.9-2.9) 05/19/25 07:05 Baso % (Auto) 0.8 % (0.2-1.0) 05/19/25 07:05 Neut # (Auto) 7.5 x10^3/uL (2.2-4.8) H 05/19/25 07:05 Lymph # (Auto) 1.8 X10^3/uL (1.3-2.9) 05/19/25 07:05 [place] # (Auto) 0.6 x10^3/uL (0.3-0.8) 05/19/25 07:05 Eos # (Auto) 0.3 x10^3/uL (0.0-0.2) H 05/19/25 07:05 Baso # (Auto) 0.1 X10^3/uL (0.0-0.1) 05/19/25 07:05 Absolute Nucleated RBC 0.1 /100WBC 05/19/25 07:05 Sodium 139 mmol/L (136-145) 05/19/25 07:05 Corrected Sodium TNP 05/19/25 07:05 Potassium 4.9 mmol/L (3.5-5.1) 05/19/25 07:05 Chloride 107 mmol/L (98-107) 05/19/25 07:05 Carbon Dioxide 23.2 mmol/L (21-32) 05/19/25 07:05 BUN 19 mg/dL (7-18) H 05/19/25 07:05 Creatinine 0.99 mg/dL (0.55-1.02) 05/19/25 07:05 Est GFR (MDRD) Af Amer > 60 (>60) 05/19/25 07:05 Est GFR (MDRD) Non-Af > 60 (>60) 05/19/25 07:05 Glucose 73 mg/dL (65-99) 05/19/25 07:05 POC Glucose (mg/dL) 93 mg/dL (65-99) 05/19/25 11:15 Lactic Acid 1.2 mmol/L (0.4-2.0) 05/18/25 18:25 Calcium 8.4 mg/dL (8.5-10.1) L 05/19/25 07:05 Corrected Calcium 9.7 mg/dL (8.5-10.1) 05/19/25 07:05 Total Bilirubin 0.40 mg/dL (0.2-1.0) 05/19/25 07:05 AST 22 Units/L (15-37) 05/19/25 07:05 ALT 16 Units/L (12-78) 05/19/25 07:05 Alkaline Phosphatase 182 Units/L (46-116) H 05/19/25 07:05 Total Protein 6.7 g/dL (6.4-8.2) 05/19/25 07:05 Albumin 2.4 g/dL (3.4-5.0) L 05/19/25 07:05 Globulin 4.3 g/dL (2.5-4.5) 05/19/25 07:05 Albumin/Globulin Ratio 0.6 Ratio (1.1-2.1) L 05/19/25 07:05 Amylase 34 Units/L (25-115) 05/18/25 04:45 Lipase 47 Units/L (16-77) 05/18/25 04:45 Specimen Type Clean catch urine 05/18/25 04:55 Urine Color Pale yellow (YELLOW) 05/18/25 04:55 Urine Appearance Clear (CLEAR) 05/18/25 04:55 Urine pH 6.0 (5.0 - 8.0) 05/18/25 04:55 Ur Specific [place] 1.020 (1.000-1.030) 05/18/25 04:55 Urine Protein Negative (NEGATIVE) 05/18/25 04:55 Urine Glucose (UA) 4+ (NEGATIVE) 05/18/25 04:55 Urine Ketones Negative (NEGATIVE) 05/18/25 04:55 Urine Blood Negative (NEGATIVE) 05/18/25 04:55 Urine Nitrite Negative (NEGATIVE) 05/18/25 04:55 Urine Bilirubin Negative (NEGATIVE) 05/18/25 04:55 Urine Urobilinogen Normal (NORMAL) 05/18/25 04:55 Ur Leukocyte Esterase Negative (NEGATIVE) 05/18/25 04:55 Reason For Visit: ACUTE ADBOMEN,LEUCOCYTOSIS, DM TYPE 2 HTN, Discharge Diagnosis All Active Problems (Updated 05/18/25 @ 11:26 by Patience Rosario MD) Abdominal pain (Acute) DM type 2 (diabetes mellitus, type 2) (Chronic) Leg edema (Acute) URI (upper respiratory infection) (Acute) UTI (urinary tract infection) (Acute) Nausea vomiting and diarrhea (Acute) Dehydration (Acute) Influenza vaccine administered (Acute) PVD (peripheral vascular disease) (Acute) Left breast lump (Acute) Nocturnal dyspnea (Acute) Hospital discharge follow-up (Acute) CAD (coronary artery disease) (Chronic) Poorly controlled diabetes mellitus (Acute) Colon cancer screening (Acute) Diabetes mellitus with stage 2 chronic kidney disease (Acute) Encounter to establish care (Acute) Gastroesophageal reflux disease without esophagitis (Chronic) Chronic kidney disease (Acute) Bronchitis (Acute) DDD (degenerative disc disease) (Chronic) Neuropathy (Acute) Hypertension (Chronic) Hypothyroidism (Acute) HLD (hyperlipidemia) (Acute) Wellness examination (Acute) Plan of Treatment: Continue with present treatment and follow up plan. Pt is to keep follow up appointment as instructed and take medications as ordered. Discharge Medications Discharge Medications: No Known Allergies Allergy (Verified 05/18/25 04:48) CONTINUE taking the following medications atorvastatin 80 mg tablet 80 mg PO QDAY 05/18/25 [History] dapagliflozin propanediol 10 mg tablet (Farxiga) 10 mg PO QDAY 05/18/25 [History] eplerenone 25 mg tablet 25 mg PO QDAY 05/18/25 [History] ezetimibe 10 mg tablet 10 mg PO QDAY 05/18/25 [History] furosemide 20 mg tablet 20 mg PO QAM PRN swelling 05/18/25 [History] gabapentin 300 mg capsule 300 mg PO TID 05/18/25 [History] levothyroxine 50 mcg tablet 50 mcg PO QDAY 05/18/25 [History] lisinopril 10 mg tablet 10 mg PO QDAY 05/18/25 [History] metoprolol tartrate 25 mg tablet 25 mg PO BID 05/18/25 [History] omeprazole 40 mg capsule,delayed release 40 mg PO BID 05/18/25 [History] ticagrelor 90 mg tablet (Brilinta) 90 mg PO BID 05/18/25 [History] tirzepatide 10 mg/0.5 mL subcutaneous pen injector (Mounjaro) 10 mg subcut QWEEK 05/18/25 [History] New Prescriptions lidocaine 4 % topical patch (Lidocaine Pain Relief) 1 patch topical QDAY PRN #10 ea 05/19/25 [Rx] Discharge Disposition Discharge Disposition: home Discharge Condition: stable Discharge Plan Discharge Plan Hospital Course: Patient is a 60-year-old female with a past medical history of type 2 diabetes, CAD, hypertension, hyperlipidemia, hypothyroidism and arthritis presented with worsening right sided abdominal pain. She states the pain started yesterday and got worse last night. She denies any associated nausea, vomiting or diarrhea. The pain does not radiate anywhere it is localized to the right lower part of the abdomen. She states she had similar pain in March and presented to the ER, was treated for UTI. She states this time the pain is worse. ER workup included labs which showed WBC 10.6 hemoglobin 13.[address] abdomen pelvis without contrast was done which did not show any acute changes. Lipase and amylase were normal. UA was normal. She was started on IV fluids and antibiotics. She continued to have RLQ pain, repeat CTAP with contrast was done. It showed mild stool burden, diverticulosis, renal cyst and normal appendix. Lactic acid was normal. Her labs were monitored and electrolytes replaced as needed. She was given lidocaine patch to put on that spot which helped. Patient's pain likely muscular in nature. She denied GI sx including N/V/D or constipation. She was stable to be discharged home. Patient Disposition: 01 HOME, SELF-CARE Condition: Stable Health Concerns: Post Hospitalization: new medications and changes needed to prevent readmission or further decline. Pt educated and given instructions on all concerns. Plan of Treatment: Continue with present treatment and follow up plan. Pt is to keep follow up appointment as instructed and take medications as ordered. Prescriptions: New lidocaine [Lidocaine Pain Relief] 4 % Adhesive Patch,Medicated 1 patch TOPICAL QDAY PRNQty: 10 0RF Continued Humulin 70/30 U-100 KwikPen 100 unit/mL (70-30) insulin pen See Rx Instructions .ROUTE .COMPLEX Qty: 15 3RF Dose Instruction: INJECT 60 UNITS SUBCUTANEOUSLY IN THE MORNING AND 38 UNITS AT BEDTIME Rx Instructions: INJECT 60 UNITS SUBCUTANEOUSLY IN THE MORNING AND 38 UNITS AT BEDTIME aspirin 81 mg tablet,delayed release (DR/EC) 81 mg PO QDAY atorvastatin 80 mg tablet 80 mg PO QDAY omeprazole 40 mg capsule,delayed release(DR/EC) 40 mg PO BID levothyroxine 50 mcg tablet 50 mcg PO QDAY lisinopril 10 mg tablet 10 mg PO QDAY gabapentin 300 mg capsule 300 mg PO TID furosemide 20 mg tablet 20 mg PO QAM PRN (Reason: swelling) eplerenone 25 mg tablet 25 mg PO QDAY ezetimibe 10 mg tablet 10 mg PO QDAY metoprolol tartrate 25 mg tablet 25 mg PO BID ticagrelor [Brilinta] 90 mg tablet 90 mg PO BID dapagliflozin propanediol [Farxiga] 10 mg tablet 10 mg PO QDAY Mounjaro 10 mg/0.5 mL pen injector 10 mg SUBCUT QWEEK Orders to Discharge Patient Discharge Orders: Discharge (Routine); Ordered 05/19/25 Ordered By: Patience Rosario Follow ups/Referrals Follow ups/Referrals: Patience Rosario MD [Primary Care Provider, Unknown] - 3 days Instructions Instructions: Type 2 Diabetes Mellitus, Diagnosis, Adult, Abdominal Pain, Adult, Lidocaine dermal patch Stand Alone Forms: Excuse From Work or School, Find Help Web Site, Post Hospital Follow Up Care Print Language: UPPER SORBIAN
== END 2025-05-19 14:35 | disposition home or self-care (01) ==
LOC: SUPCPDRO → ER 04:32 → MED/SURG 04:32
PROVIDERS: ADMIT Internal Medicine; ATTEND Internal Medicine